=== PATIENT | female | born 1940 | race Caucasian/White ===

== ENCOUNTER 2017-01-21 12:38 | Day surgery (SDC) | payer BC ==
[2017-01-21] MEDS ORDERED: MIDAZOLAM HCL 2MG/2ML VIAL IV ONE (14:00)
[2017-01-21] MEDS ORDERED: LIDOCAINE 2% MDV (20MG/ML) 20ML VIAL IV ONE (14:00)
[2017-01-21] MEDS ORDERED: PROPOFOL 10 MG/ML VIAL IV ONE (14:00)
--- NOTE | 2017-01-22 14:50 | Operative Note ---
DATE OF SURGERY: 01/21/2017 ORDERING PHYSICIAN: Stas Pickett D.O. PROCEDURE: COLONOSCOPY to the cecum. Surgeon: Isaiah José D.O. Indication: Colorectal cancer screening. Intravenous sedation was administered by the Department of Anesthesiology and included Diprivan titrated to effect. PROCEDURE: Following informed consent from this alert individual, including a discussion of the risks and benefits of the procedure and an opportunity for the patient to ask questions, the patient was in the left lateral decubitus position. A digital rectal examination was performed. No abnormalities were noted. Following this, the Olympus PCF-180 video colonoscope was inserted into the rectum without resistance. The rectal mucosa had a normal appearance, with normal folds and distensibility. The colonoscope was advanced up through the bowel to the level of the cecum without much difficulty. Throughout the bowel the mucosa appeared normal, folds were normal, the bowel was fairly distensible. The cecum was defined by noting the appendiceal orifice and the ileocecal valve. The colon preparation was good. Retroflexion in the cecum was unremarkable. From the base of the cecum, the colonoscope was then withdrawn. No abnormalities were noted. Retroflexion in the rectum was endoscopically normal. The endoscope was straightened and removed. The patient tolerated the procedure well and was returned to the Recovery Area in stable condition. IMPRESSION: Unremarkable colonoscopy to the cecum. RECOMMENDATIONS: The patient was advised she can have a recheck colonoscopy for screening purposes in 10 years' time, otherwise will be following up with Dr. Pickett. As always, thank you for allowing me to participate in the care of your patient. Isaiah José, CC: Stas Picktet D.O. MTDD
== END 2017-01-21 14:34 | disposition home or self-care (01) ==
LOC: HOP 12:38
PROVIDERS: ATTEND Internal Medicine Gastroenterology
DX: Z12.11 Encounter for screening for malignant neoplasm of colon (principal); I10 Essential (primary) hypertension; E78.00 Pure hypercholesterolemia, unspecified
CPT/HCPCS: 00810; G0121